=== PATIENT | female | born 1935 | race Caucasian/White ===

== ENCOUNTER 2017-08-30 12:35 | Emergency (ER) | payer MEDICARE ==
[~2017-08-30] VITALS: Ht 172.7 cm; Wt 48.0 kg
[2017-08-30 12:45] VITALS: BP 170/75; PULSE 90; RESP 16; TEMP 99.3; O2SAT 97
[2017-08-30] MEDS ORDERED: SODIUM CHLORIDE 0.9% FLUSH 10 ML FLUSH IVF PRN (13:00)
[2017-08-30] MEDS ORDERED: PANTOPRAZOLE SODIUM 40 MG VIAL IV PUSH ONE (13:15)
--- NOTE | 2017-08-30 13:17 | PD ---
HPI Chief Complaint: GI Complaint Time Seen by Provider: 12:53 Travel History International Travel<30 days: No Contact w/Intl Traveler<30days: No Traveled to known affect area: No History of Present Illness HPI 81-year-old female presents with black watery stools over the past couple of days. She denies any abdominal pain or fever. She states she has history of low blood counts and follows Dr. Mccullough and had a transfusion 1 week ago. She discussed her symptoms with Dr. Mccullough and he advised that she come to the emergency room. Quality is black. Severity is multiple episodes. Patient is a poor historian and keeps retelling the same story about her recent visit with Dr. Mccullough when asked for further details. PFSH Past Medical History Arthritis: Yes Anxiety: Yes Cancer: Yes (NON-HODGKIN'S LYMPHOMA, IN REMISSION) Cardiovascular Problems: Yes Chemotherapy: Yes Respiratory: Yes Migraines: Yes (ALSO SINUS HEADACHES) Menopausal: Yes : 0 Past Surgical History Appendectomy: Yes Cholecystectomy: Yes Social History Alcohol Use: No Tobacco Use: No Substance Use: No Allergies-Medications (Allergen,Severity, Reaction): Coded Allergies: propoxyphene (Unverified Allergy, Severe, RASH, 08/30/17) Reported Meds & Prescriptions Reported Meds & Active Scripts Active Reported Coreg (Carvedilol) 6.25 Mg Tab 6.25 Mg PO BID Omeprazole 20 Mg Tab 20 Mg PO DAILY Vitamin E (Vitamin E Acid Succinate) 400 Unit Tablet 400 Units PO DAILY Zyrtec (Cetirizine HCl) 10 Mg Tablet 10 Mg PO DAILY PRN Tylenol (Acetaminophen) 325 Mg Tab 650 Mg PO Q6H PRN Vitamin D3 (Cholecalciferol) 1,000 Unit Tab 1,000 Units PO DAILY Calcium 600 (Calcium Carbonate) 600 Mg Calcium (1500 Mg) Tab 600 Mg PO BID Super B with C (B Complex W/ C) 1 Cap Cap 1 Cap PO DAILY Vitamin B-12 (Cyanocobalamin) 1,000 Mcg Tab 1,000 Mcg PO DAILY Review of Systems Except as stated in HPI: all other systems reviewed are Neg Physical Exam Narrative GENERAL: 81-year-old female in no apparent distress SKIN: Focused skin assessment warm/dry. HEAD: Atraumatic. Normocephalic. EYES: Pupils equal and round. No scleral icterus. No injection or drainage. ENT: No nasal bleeding or discharge. Mucous membranes pink and moist. NECK: Trachea midline. CARDIOVASCULAR: Regular rate and rhythm. RESPIRATORY: No accessory muscle use. Clear to auscultation. Breath sounds equal bilaterally. GASTROINTESTINAL: Abdomen soft, non-tender, nondistended. MUSCULOSKELETAL: No obvious deformities. No clubbing. No cyanosis. NEUROLOGICAL: Awake and alert. No obvious cranial nerve deficits. Motor grossly within normal limits. Normal speech. RECTAL EXAM: Performed with burial vault deliverer and installer and after permission. No external hemorrhoid or fissure, stool is yellow, non-bloody. Data Data Last Documented VS Vital Signs Date Time Temp Pulse Resp B/P (MAP) Pulse Ox O2 Delivery O2 Flow Rate FiO2 08/30/17 13:21 99 Room Air 08/30/17 12:45 99.3 90 16 170/75 (106) Orders Orders Complete Blood Count With Diff (08/30/17 12:53) Comprehensive Metabolic Panel (08/30/17 12:53) Prothrombin Time / Inr (Pt) (08/30/17 12:53) Act Partial Throm Time (Ptt) (08/30/17 12:53) Type And Screen (08/30/17 12:53) Ecg Monitoring (08/30/17 12:53) Iv Access Insert/Monitor (08/30/17 12:53) Oximetry (08/30/17 12:53) Sodium Chloride 0.9% Flush (Ns Flush) (08/30/17 13:00) Pantoprazole Inj (Protonix Inj) (08/30/17 13:15) Ed Discharge Order (08/30/17 14:24) Labs Laboratory Tests Test 08/30/17 13:15 White Blood Count 3.9 TH/MM3 Red Blood Count 3.21 MIL/MM3 Hemoglobin 9.4 GM/DL Hematocrit 28.3 % Mean Corpuscular Volume 88.2 FL Mean Corpuscular Hemoglobin 29.4 PG Mean Corpuscular Hemoglobin Concent 33.3 % Red Cell Distribution Width 14.2 % Platelet Count 246 TH/MM3 Mean Platelet Volume 7.6 FL Neutrophils (%) (Auto) 75.2 % Lymphocytes (%) (Auto) 11.0 % Monocytes (%) (Auto) 11.2 % Eosinophils (%) (Auto) 2.2 % Basophils (%) (Auto) 0.4 % Neutrophils # (Auto) 2.9 TH/MM3 Lymphocytes # (Auto) 0.4 TH/MM3 Monocytes # (Auto) 0.4 TH/MM3 Eosinophils # (Auto) 0.1 TH/MM3 Basophils # (Auto) 0.0 TH/MM3 CBC Comment DIFF FINAL Differential Comment Prothrombin Time 9.8 SEC Prothromb Time International Ratio 1.0 RATIO Activated Partial Thromboplast Time 22.1 SEC Blood Urea Nitrogen 8 MG/DL Creatinine 0.57 MG/DL Random Glucose 107 MG/DL Total Protein 6.8 GM/DL Albumin 3.6 GM/DL Calcium Level 8.4 MG/DL Alkaline Phosphatase 68 U/L Aspartate Amino Transf (AST/SGOT) 22 U/L Alanine Aminotransferase (ALT/SGPT) 23 U/L Total Bilirubin 0.5 MG/DL Sodium Level 136 MEQ/L Potassium Level 3.2 MEQ/L Chloride Level 101 MEQ/L Carbon Dioxide Level 25.3 MEQ/L Anion Gap 10 MEQ/L Estimat Glomerular Filtration Rate 102 ML/MIN MDM Medical Decision Making Medical Screen Exam Complete: Yes Emergency Medical Condition: Yes Medical Record Reviewed: Yes (Past history confirmed, recent note with Dr. Mccullough confirmed and reviewed) Interpretation(s) CBC & BMP Diagram 08/30/17 13:15 Total Protein 6.8, Albumin 3.6, Calcium Level 8.4 L, Alkaline Phosphatase 68, Aspartate Amino Transf (AST/SGOT) 22, Alanine Aminotransferase (ALT/SGPT) 23, Total Bilirubin 0.5 Differential Diagnosis GI bleed, ulcer, medication effect, anemia, gastroenteritis, colitis Narrative Course Will check blood work and dose with Protonix and reevaluate. labs are near baseline, will discuss with her caddie supervisor Patient denies any new complaints and states that they are feeling better. Patient happy with care, all questions answered. Patient knows that follow up is incumbent on them and to return to the emergency room immediately if new or worsening symptoms develop. Patient given strict return precautions, vitals reviewed and are normal, agrees to further workup as an outpatient. [facility] Point of Care Internal Pos. & Neg. Controls: Passed Fecal Specimen Occult Blood: Negative Physician Communication Physician Communication dr mccullough agrees to discharge, will see in the office Diagnosis Primary Impression: Black stool Patient Instructions: General Instructions Additional Instructions: return as needed, follow with primary and dr mccullough this week Med/Other Pt SpecificInfo: No Change to Meds Disposition: DISCHARGE HOME Condition: Stable Keturah Durán MD Aug 30, 2017 13:17
[2017-08-30 13:21] VITALS: O2SAT 99
[2017-08-30 13:39] LABS: AUTOMATED NEUTROPHIL # 2.9 TH/MM3 (1.8-7.7); BASOPHIL % 0.4 % (0.0-2.0); EOSINOPHIL # 0.1 TH/MM3 (0-0.4); EOSINOPHIL % 2.2 % (0.0-4.0); HEMATOCRIT 28.3 % (35.0-46.0); HEMOGLOBIN 9.4 GM/DL (11.6-15.3); LYMPHOCYTE # 0.4 TH/MM3 (1.0-4.8); MEAN CELL VOLUME 88.2 FL (80.0-100.0); MEAN CORPUSCULAR HEMOGLOBIN 29.4 PG (27.0-34.0); MEAN CORPUSCULAR HGB CONC 33.3 % (32.0-36.0); MEAN PLATELET VOLUME 7.6 FL (7.0-11.0); MONO % 11.2 % (0.0-8.0); MONOCYTE # 0.4 TH/MM3 (0-0.9); NEUT % 75.2 % (16.0-70.0); PLATELET COUNT 246 TH/MM3 (150-450); RED BLOOD COUNT 3.21 MIL/MM3 (4.00-5.30); RED CELL DISTRIBUTION WIDTH 14.2 % (11.6-17.2); WHITE BLOOD COUNT 3.9 TH/MM3 (4.0-11.0)
[2017-08-30 13:47] LABS: PROTHROMBIN TIME - PATIENT 9.8 SEC (9.8-11.6)
[2017-08-30] MEDS ORDERED: CALCTAB94 PO (13:49)
[2017-08-30] MEDS ORDERED: VITA400T18 PO (13:49)
[2017-08-30] MEDS ORDERED: SUPECAP14 PO (13:49)
[2017-08-30] MEDS ORDERED: CETI-1 PO (13:49)
[2017-08-30] MEDS ORDERED: TYLE325T PO (13:49)
[2017-08-30] MEDS ORDERED: VITA10002 PO (13:49)
[2017-08-30] MEDS ORDERED: VITA100018 PO (13:49)
[2017-08-30 13:53] LABS: ALBUMIN 3.6 GM/DL (3.4-5.0); AST (GOT) 22 U/L (15-37); BICARBONATE 25.3 MEQ/L (21.0-32.0); BLOOD UREA NITROGEN 8 MG/DL (7-18); CALCIUM 8.4 MG/DL (8.5-10.1); CHLORIDE 101 MEQ/L (98-107); CREATININE 0.57 MG/DL (0.50-1.00); GLOMERULAR FILTRATION RATE 102 ML/MIN (>89); GLUCOSE,RANDOM 107 MG/DL (74-106); SODIUM (NA) 136 MEQ/L (136-145)
[2017-08-30 13:54] LABS: ALT (GPT) 23 U/L (10-53)
[2017-08-30 13:56] LABS: ALKALINE PHOSPHATASE 68 U/L (45-117); TOTAL BILIRUBIN ADULT 0.5 MG/DL (0.2-1.0); TOTAL PROTEIN 6.8 GM/DL (6.4-8.2)
[2017-08-30] MEDS ORDERED: CARV6.25 PO (14:16)
[2017-08-30] MEDS ORDERED: OMEP20TA93 PO (14:16)
== END 2017-08-30 15:12 | disposition home or self-care (01) ==
LOC: NEPE 12:35
DX: R19.5 Other fecal abnormalities (principal); C85.90 Non-Hodgkin lymphoma, unspecified, unspecified site; Z87.39 Personal history of other diseases of the musculoskeletal system and connective tissue; Z86.79 Personal history of other diseases of the circulatory system; Z87.09 Personal history of other diseases of the respiratory system; Z86.69 Personal history of other diseases of the nervous system and sense organs; Z86.59 Personal history of other mental and behavioral disorders
CPT/HCPCS: 80053; 85025; 85610; 85730; 86850; 86900; 86901; 96374; 99284; C9113